=== PATIENT | male | born 1965 ===

== ENCOUNTER 2017-11-26 23:00 | Emergency (ER) | payer OTHER, SELFPAY ==
[2017-11-26 23:09] VITALS: BP 171/97; PULSE 103; RESP 18; TEMP 37.5; O2SAT 100; BMI 30.1
--- NOTE | 2017-11-26 23:24 | ED_ITS ---
HPI - URI/Sore Throat General Chief Complaint: Upper Respiratory Symptoms Stated Complaint: LEFT FACE PAIN EAR INFECTION AND SORE THROAT Time Seen by Provider: 11/26/17 23:05 Source: patient Mode of arrival: ambulatory Limitations: no limitations History of Present Illness HPI Narrative: Patient is a 52-year-old male who presents with left-sided facial pain as and throat pain. It has been ongoing for the last 2-3 days. He says it hurts very much when he swallows also his ear hurts. He denies any dental or tooth pain. He is able to swallow but it is painful. He does have a productive cough but he has a cough daily it is not any worse. He denies chest pain is no shortness of breath heart palpitations. He did take Tylenol 6-8 hours ago for pain. MD Complaint: sore throat and sinus pain Duration: constant Related Data Home Medications Medication Instructions Recorded Confirmed ACETAMINOPHEN 650 mg PO Q6HP #0 09/11/11 Allergies Allergy/AdvReac Type Severity Reaction Status Date / Time Penicillins Allergy Mild MOUTH GET Verified 11/26/17 23:15 HEAVY hydrocodone Allergy Unknown Verified 11/26/17 23:15 Review of Systems Review of Systems All systems reviewed & are unremarkable except as noted in HPI and below Constitutional Denies chills, Denies fever(s), Denies lethargy and Denies weakness Eyes Denies change in vision, Denies eye discharge, Denies irritation and Denies loss of vision ENT Ears, Nose, Mouth, and Throat: Reports as per HPI Cardiovascular Denies chest pain, Denies irregular heart rhythm, Denies lightheadedness, Denies palpitations, Denies dyspnea, Denies dyspnea on exertion and Denies orthopnea Respiratory Denies cough, Denies dyspnea, Denies dyspnea on exertion and Denies wheezing Gastrointestinal Gastrointestinal: Denies abdominal pain, Denies change in bowel habits, Denies diarrhea, Denies nausea and Denies vomiting Musculoskeletal Denies back pain, Denies muscle weakness, Denies numbness and Denies tingling Integumentary/Breasts Reports other (History of rosacea on doxycycline daily) Neurologic Denies loss of vision, Denies numbness, Denies tingling and Denies weakness Endocrine Denies palpitations Allergic/Immunologic Denies wheezing [facility] Medical History Rosacea (Acute) Ulcerative colitis (Acute) Surgical History H/O colectomy (Acute) Social History Smoking Status: Never smoker alcohol intake: never substance use type: does not use Comment: PCP: Dr. Forman Exam Initial Vital Signs Initial Vital Signs: Vital Signs Temperature 99.5 F 11/26/17 23:09 Pulse Rate 103 H 11/26/17 23:09 Respiratory Rate 18 11/26/17 23:09 Blood Pressure 171/97 H 11/26/17 23:09 Pulse Oximetry 100 11/26/17 23:09 GENERAL: Well-appearing, well-nourished and in no acute distress. HEENT: Head atraumatic,EOMI, pupils reactive, face symmetric, neck is supple no meningeal signs EARS: Tympanic membranes visualized, no erythema or bulging, no hemotympanum PHARYNX: Mild erythema some swelling noted on right no exudate no uvula deviation airway patent CARDIOVASCULAR: Regular rate and rhythm without murmurs, rubs or gallops. RESPIRATORY: Breath sounds equal bilaterally, no wheezes rales or rhonchi. ABDOMEN: Soft, nontender. Normoactive bowel sounds all 4 quadrants. No guarding or rebound. EXTREMITIES: Normal range of motion, no clubbing or edema. Neurovascularly intact NEUROLOGICAL: Alert and oriented x4.Normal gait and speech. Cranial nerves II through XII grossly intact. SKIN: Warm, dry, no laceration, no petechiae, no rashes or lesions. Course Vital Signs - 8 hr 11/26/17 23:09 11/26/17 23:25 11/26/17 23:39 Temperature 99.5 F Pulse Rate 103 H 93 H Respiratory Rate 18 18 Blood Pressure 171/97 H 154/97 H Blood Pressure [Left Arm] 159/97 H Pulse Oximetry 100 99 MDM - URI/Sore Throat Lab Data Point of Care Testing Rapid Strep A Negative Discharge Plan Departure Patient Disposition: Home Clinical Impression: URI (upper respiratory infection) Discharge Date/Time: 11/26/17 23:41 Interventions: ED Discharge Assessment Last Done: 11/26/17 23:39 Instructions: DI for Viral Upper Respiratory Infection -- Adult Activity Restrictions/Additional Instructions: *You have been diagnosed with upper respiratory infection *What to do: At this time no indication for antibiotics strep test is negative *Continue to take medications as directed *Follow up with your primary care provider in 2-3 days *Return to ER if you should have worsening throat pain, inability to swallow, stiff neck [or] any new, worsening or concerning symptoms Prescriptions: No Action ACETAMINOPHEN 650 mg PO Q6HP Qty: 0 RF: 0 Referrals: Chico Rosenberg MD [Primary Care Provider] - Sunny Forman MD [Non-Staff] -
[2017-11-26 23:25] VITALS: BP 159/97
[2017-11-26 23:39] VITALS: BP 154/97; PULSE 93; RESP 18; O2SAT 99
== END 2017-11-26 23:41 | disposition home or self-care (01) ==
PROVIDERS: Emergency Provider Emergency Medicine; Family Provider Family Medicine; PCP Family Medicine
DX: J06.9 Acute upper respiratory infection, unspecified (principal)
CPT/HCPCS: 87880; 99282; 99283

== ENCOUNTER 2018-05-13 13:32 | Emergency (ER) | payer BC, SELFPAY ==
[2018-05-13 13:40] VITALS: BP 161/102; PULSE 84; RESP 18; TEMP 37.4; O2SAT 98; BMI 30.1
--- NOTE | 2018-05-13 14:06 | ED.EYEPROB ---
HPI - Eye Problem General Chief complaint: Eye Problems Stated complaint: LF EYE SWELLED SHUT Time Seen by Provider: 05/13/18 13:56 Source: patient Mode of arrival: ambulatory Limitations: no limitations History of Present Illness HPI Narrative: The patient is a 53-year-old male who noticed a lesion on his forehead 2 or 3 days ago. Last night his eye started swelling today he is unable to open a has more lesions noted on the left side of his face. Denies any eye pain or discharge. chief complaint: eye pain and eye redness Related Data Home Medications Medication Instructions Recorded Confirmed ACETAMINOPHEN 650 mg PO Q6HP #0 09/11/11 05/13/18 cyclobenzaprine 10 mg PO TID PRN 05/13/18 05/13/18 doxycycline hyclate 100 mg PO DAILY 05/13/18 05/13/18 naproxen 500 mg PO BID 05/13/18 05/13/18 Previous Rx's Medication Instructions Recorded hydrocodone-acetaminophen [[place]] 1 tab PO Q4-6H PRN #14 tab 05/13/18 prednisone 50 mg PO DAILY #5 tab 05/13/18 valacyclovir 1,000 mg PO Q12H #30 tab 05/13/18 Allergies Allergy/AdvReac Type Severity Reaction Status Date / Time Penicillins Allergy Mild MOUTH GET Verified 11/26/17 23:15 HEAVY hydrocodone Allergy Unknown Verified 11/26/17 23:15 Review of Systems Review of Systems ROS Unobtainable: All systems reviewed & are unremarkable except as noted in HPI and below Constitutional Denies frequent falls Eyes Reports as per HPI ENT Ears, Nose, Mouth, and Throat: Denies change in voice, Denies dizziness, Denies neck pain and Denies sore throat Cardiovascular Denies chest pain, Denies irregular heart rhythm, Denies lightheadedness, Denies palpitations and Denies orthopnea Gastrointestinal Gastrointestinal: Denies abdominal pain, Denies change in bowel habits, Denies diarrhea, Denies nausea and Denies vomiting Musculoskeletal Denies neck pain and Denies numbness Integumentary/Breasts Reports as per HPI Neurologic Denies behavioral changes, Denies confusion, Denies dizziness, Denies frequent falls and Denies numbness Psychiatric Denies behavioral changes and Denies confusion Endocrine Denies palpitations [facility] Medical History Rosacea (Acute) Ulcerative colitis (Acute) Surgical History H/O colectomy (Acute) Social History (Updated 11/26/17 @ 23:22 by Paula Austin DO) Smoking Status: Never smoker alcohol intake: never substance use type: does not use Social History Smoking Status: Never smoker alcohol intake: never substance use type: does not use Exam Initial Vital Signs Initial Vital Signs: Vital Signs Temperature 99.4 F 05/13/18 13:40 Pulse Rate 84 05/13/18 13:40 Respiratory Rate 18 05/13/18 13:40 Blood Pressure 161/102 H 05/13/18 13:40 Pulse Oximetry 98 05/13/18 13:40 GENERAL: Well-appearing, well-nourished and in no acute distress. EYE: Significant swelling of left upper eyelid, lesion is noted in the left upper eyelid. Not as much swelling in the lower lid. CARDIOVASCULAR: peripheral pulses in tact, cap refill <2 sec RESPIRATORY: No respiratory distress, speaks in full sentences without difficulty EXTREMITIES: Normal range of motion, no clubbing or edema. Neurovascularly intact NEUROLOGICAL: Cranial nerves II through XII grossly intact. Normal gait and speech. SKIN: Erythematous on left side with left scalp and forehead lesions that are crusted over.. Eyes Eyelids: eyelid abnormality left upper eyelid erythema, swelling and tenderness Cornea: fluorescein used (Difficult to look due to amount of swelling in the upper eyelid.) Course Orders Ordered: Discontinued Medications Proparacaine HCl (Parcaine 0.5% Ophth Latricia) 1 drops EYE-LEFT NOW ONE Stop: 05/13/18 15:00 Last Admin: 05/13/18 15:00 Dose: 2 drop Consultations Consultation #1: Dr. Lerner, ophthalmology recommends oral antivirals and follow up with Ophthalmology next week. At this time no drops are to be given. He is aware that an eye exam is difficult due to the amount of swelling around eye. Time: 14:54 Vital Signs - 8 hr 05/13/18 13:40 05/13/18 15:12 Temperature 99.4 F 99.4 F Pulse Rate 84 102 H Respiratory Rate 18 18 Blood Pressure 161/102 H 166/100 H Pulse Oximetry 98 98 MDM - Eye Problem MDM Narrative Medical decision making narrative: Patient states that he does have an eye doctor unclear if it is an regional property manager or manager account management. But he does see 1 on a yearly basis. Dr. Lerner has graciously offered to see patient in the clinic next week or he can see his own manager account management. I have stressed to the patient it is imperative that he be seen by an manager account management to be sure that this is followed up closely and intervention can happen as needed. At this time no drops indicated. 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 It is imperative you be seen by an manager account management *Continue to take medications as directed Valacyclovir 1000 mg every 12 hours for 2 weeks Prednisone 50 mg for 5 days [place] 1-2 tablets every 6 hours if needed for severe pain *Follow up with Ophthalmology Tuesday. You will need to call them 1st thing Tuesday morning you have been seen and evaluated in the ED and I spoke with Dr. Lerner *Return to ER if you should have fever, increasing redness or any new, worsening or concerning symptoms Prescriptions: New valacyclovir 1 gram tablet 1,000 mg PO Q12H Qty: 30 RF: 0 hydrocodone-acetaminophen [[place]] 5-325 mg tablet 1 tab PO Q4-6H PRN (Reason: pain) Qty: 14 RF: 0 prednisone 50 mg tablet 50 mg PO DAILY Qty: 5 RF: 0 No Action ACETAMINOPHEN tablet 650 mg PO Q6HP Qty: 0 RF: 0 cyclobenzaprine 10 mg Tablet 10 mg PO TID PRN (Reason: Muscle Spasm) RF: 0 doxycycline hyclate 100 mg Tablet 100 mg PO DAILY RF: 0 naproxen 500 mg Tablet 500 mg PO BID RF: 0 Referrals: Jose Lerner MD [Physician] - Chico Rosenberg MD [Primary Care Provider] -
--- NOTE | 2018-05-13 14:24 | PC.NURSE ---
pt is unable to open his left eye. Assisted Dr. Austin with eye exam, pt's eyelid is swollen shut. difficulty opening with my assistance. pt reports that he woke up with a headache and swollen eye. unable to obtain visual acuity. pt has 2 small lesions on eyelid. forehead is red.
--- NOTE | 2018-05-13 14:58 | ED_ITS ---
HPI - Eye Problem General Chief complaint: Eye Problems Stated complaint: LF EYE SWELLED SHUT Time Seen by Provider: 05/13/18 13:56 Source: patient Mode of arrival: ambulatory Limitations: no limitations History of Present Illness HPI Narrative: The patient is a 53-year-old male who noticed a lesion on his forehead 2 or 3 days ago. Last night his eye started swelling today he is unable to open a has more lesions noted on the left side of his face. Denies any eye pain or discharge. chief complaint: eye pain and eye redness Related Data Home Medications Medication Instructions Recorded Confirmed ACETAMINOPHEN 650 mg PO Q6HP #0 09/11/11 05/13/18 cyclobenzaprine 10 mg PO TID PRN 05/13/18 05/13/18 doxycycline hyclate 100 mg PO DAILY 05/13/18 05/13/18 naproxen 500 mg PO BID 05/13/18 05/13/18 Previous Rx's Medication Instructions Recorded hydrocodone-acetaminophen [[place]] 1 tab PO Q4-6H PRN #14 tab 05/13/18 prednisone 50 mg PO DAILY #5 tab 05/13/18 valacyclovir 1,000 mg PO Q12H #30 tab 05/13/18 Allergies Allergy/AdvReac Type Severity Reaction Status Date / Time Penicillins Allergy Mild MOUTH GET Verified 11/26/17 23:15 HEAVY hydrocodone Allergy Unknown Verified 11/26/17 23:15 Review of Systems Review of Systems ROS Unobtainable: All systems reviewed & are unremarkable except as noted in HPI and below Constitutional Denies frequent falls Eyes Reports as per HPI ENT Ears, Nose, Mouth, and Throat: Denies change in voice, Denies dizziness, Denies neck pain and Denies sore throat Cardiovascular Denies chest pain, Denies irregular heart rhythm, Denies lightheadedness, Denies palpitations and Denies orthopnea Gastrointestinal Gastrointestinal: Denies abdominal pain, Denies change in bowel habits, Denies diarrhea, Denies nausea and Denies vomiting Musculoskeletal Denies neck pain and Denies numbness Integumentary/Breasts Reports as per HPI Neurologic Denies behavioral changes, Denies confusion, Denies dizziness, Denies frequent falls and Denies numbness Psychiatric Denies behavioral changes and Denies confusion Endocrine Denies palpitations [facility] Medical History Rosacea (Acute) Ulcerative colitis (Acute) Surgical History H/O colectomy (Acute) Social History (Updated 11/26/17 @ 23:22 by Paula Austin DO) Smoking Status: Never smoker alcohol intake: never substance use type: does not use Social History Smoking Status: Never smoker alcohol intake: never substance use type: does not use Exam Initial Vital Signs Initial Vital Signs: Vital Signs Temperature 99.4 F 05/13/18 13:40 Pulse Rate 84 05/13/18 13:40 Respiratory Rate 18 05/13/18 13:40 Blood Pressure 161/102 H 05/13/18 13:40 Pulse Oximetry 98 05/13/18 13:40 GENERAL: Well-appearing, well-nourished and in no acute distress. EYE: Significant swelling of left upper eyelid, lesion is noted in the left upper eyelid. Not as much swelling in the lower lid. CARDIOVASCULAR: peripheral pulses in tact, cap refill <2 sec RESPIRATORY: No respiratory distress, speaks in full sentences without difficulty EXTREMITIES: Normal range of motion, no clubbing or edema. Neurovascularly intact NEUROLOGICAL: Cranial nerves II through XII grossly intact. Normal gait and speech. SKIN: Erythematous on left side with left scalp and forehead lesions that are crusted over.. Eyes Eyelids: eyelid abnormality left upper eyelid erythema, swelling and tenderness Cornea: fluorescein used (Difficult to look due to amount of swelling in the upper eyelid.) Course Orders Ordered: Discontinued Medications Proparacaine HCl (Parcaine 0.5% Ophth Latricia) 1 drops EYE-LEFT NOW ONE Stop: 05/13/18 15:00 Last Admin: 05/13/18 15:00 Dose: 2 drop Consultations Consultation #1: Dr. Lerner, ophthalmology recommends oral antivirals and follow up with Ophthalmology next week. At this time no drops are to be given. He is aware that an eye exam is difficult due to the amount of swelling around eye. Time: 14:54 Vital Signs - 8 hr 05/13/18 13:40 05/13/18 15:12 Temperature 99.4 F 99.4 F Pulse Rate 84 102 H Respiratory Rate 18 18 Blood Pressure 161/102 H 166/100 H Pulse Oximetry 98 98 MDM - Eye Problem MDM Narrative Medical decision making narrative: Patient states that he does have an eye doctor unclear if it is an plant operations vice president or cash register mechanic. But he does see 1 on a yearly basis. Dr. Lerner has graciously offered to see patient in the clinic next week or he can see his own cash register mechanic. I have stressed to the patient it is imperative that he be seen by an cash register mechanic to be sure that this is followed up closely and intervention can happen as needed. At this time no drops indicated. 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 It is imperative you be seen by an cash register mechanic *Continue to take medications as directed Valacyclovir 1000 mg every 12 hours for 2 weeks Prednisone 50 mg for 5 days [place] 1-2 tablets every 6 hours if needed for severe pain *Follow up with Ophthalmology Tuesday. You will need to call them 1st thing Tuesday morning you have been seen and evaluated in the ED and I spoke with Dr. Lerner *Return to ER if you should have fever, increasing redness or any new, worsening or concerning symptoms Prescriptions: New valacyclovir 1 gram tablet 1,000 mg PO Q12H Qty: 30 RF: 0 hydrocodone-acetaminophen [[place]] 5-325 mg tablet 1 tab PO Q4-6H PRN (Reason: pain) Qty: 14 RF: 0 prednisone 50 mg tablet 50 mg PO DAILY Qty: 5 RF: 0 No Action ACETAMINOPHEN tablet 650 mg PO Q6HP Qty: 0 RF: 0 cyclobenzaprine 10 mg Tablet 10 mg PO TID PRN (Reason: Muscle Spasm) RF: 0 doxycycline hyclate 100 mg Tablet 100 mg PO DAILY RF: 0 naproxen 500 mg Tablet 500 mg PO BID RF: 0 Referrals: Jose Lerner MD [Physician] - Chico Rosenberg MD [Primary Care Provider] -
[2018-05-13] MEDS: PROPARACAINE 0.5% OPHTH SOL 1 DROPS EYE-LEFT (15:00)
[2018-05-13 15:12] VITALS: BP 166/100; PULSE 102; RESP 18; TEMP 37.4; O2SAT 98
== END 2018-05-13 15:12 | disposition home or self-care (01) ==
PROVIDERS: Emergency Provider Emergency Medicine; PCP Family Medicine
DX: B02.30 Zoster ocular disease, unspecified (principal)
CPT/HCPCS: 99282; 99283

== ENCOUNTER 2021-07-23 20:56 | Inpatient (IN) | payer BC, SELFPAY ==
[2021-07-23 22:30] VITALS: BP 177/110; PULSE 77; RESP 18; TEMP 36.3; O2SAT 97
[2021-07-23 22:42] VITALS: O2SAT 97
[2021-07-23 22:44] VITALS: BMI 29.2
--- NOTE | 2021-07-23 22:50 | P.HP_ITS ---
History of Present Illness History of Present Illness Date Patient Seen: 07/23/21 Time Patient Seen: 22:50 Chief complaint: small bowel obstruction Narrative: Rayo Ludwig is a 56 y.o. 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 He was found to have small-bowel obstruction. He does not take any chronic prescription medications currently, and is in between PCPs. Patient is afebrile, blood pressure 177/110, heart rate 77, respiratory rate 18, oxygen saturation 97% on room air he weighs 95 kg. WBC is mildly elevated at 12.3 RBC 5.14 hemoglobin 15.9 hematocrit 47.6 platelet count 329 sodium 136 potassium 4.0 chloride 104, bicarb 26 anion gap of 6 BUN 13 creatinine 0.8 glucose 131 calcium 9.1 total bilirubin 1.1 AST 17 ALT 20 alk-phos 65 total protein 18.1 albumin is 4.2 globulin 3.9 lipase 25, UA is negative for UTI, COVID-19 PCR is negative. Patient History Medical History GERD (gastroesophageal reflux disease) Rosacea Ulcerative colitis Surgical History History of colostomy reversal History of total colectomy Family & Social History Family History Mother Diabetes mellitus Father Hypertension Sister Alive and well Tobacco & Substance use: Smoking Status Never smoker alcohol intake never Meds Home Medications and Allergies Home Medications Medication Instructions Recorded Confirmed Type ACETAMINOPHEN 650 mg PO Q6HP ##0 09/11/11 05/13/18 History cyclobenzaprine 10 mg tablet 10 mg PO TID PRN Muscle Spasm 05/13/18 05/13/18 H istory doxycycline hyclate 100 mg tablet 100 mg PO DAILY 05/13/18 05/13/18 History hydrocodone 5 mg-acetaminophen 325 1 tab PO Q4-6H PRN pain #14 tabs 05/13/18 Rx mg tablet ([place]) naproxen 500 mg tablet 500 mg PO BID 05/13/18 05/13/18 History prednisone 50 mg tablet 50 mg PO DAILY #5 tabs 05/13/18 Rx valacyclovir 1 gram tablet 1,000 mg PO Q12H #30 tabs 05/13/18 Rx Allergies Allergy/AdvReac Type Severity Reaction Status Date / Time Penicillins Allergy Mild MOUTH GET Verified 11/26/17 23:15 HEAVY hydrocodone Allergy Unknown Verified 11/26/17 23:15 Review of Systems Review of Systems ROS: Yes All systems reviewed with the patient and are negative except as otherwise documented Exam Narrative Exam Narrative: Gen: Alert, oriented, well-developed 56 y.o. Eurasian male, appears uncomfortable HEENT: normocephalic, atraumatic, conjunctiva clear, sclera non-icteric, oral mucosa pink and moist, has an NG tube Neck: supple, full ROM, no JVD, trachea is midline Resp: Lungs CTA, non-labored breathing CV: RRR, no murmur or rubs Abd: soft, diffusely tender, hypoactive BTs Skin: no lesions or rashes, dry and intact Neuro: Alert and oriented X 4 w/no focal deficits. Speech clear and coherent. Extremities: moves all 4 extremities, is ambulatory, negative Maximilian?s sign Psyche: normal mood and affect. Assessment & Plan Assessment & Plan narrative: Rayo Fuchs is accepted in transfer from [facility] for further evaluation and management of a small-bowel obstruction. Small-bowel obstruction, acute, present on admission * Dr. Walker, general surgery has been contacted by [facility]'s ED provider and will see the patient in the morning * Patient is NPO except for ice chips, though NG tube will likely interfere with any substance * Pain control with IV morphine and fever control with Tylenol PA VTE Prophylaxis: Wells risk score 0 pharmacological DVT prophylaxis is con tradicted in the setting of likely up coming surgery, Bilateral SCDs Patient is admitted to the inpatient service due to the severity of disease, risks of further disease progression and this stay is expected to exceed 2 midnights. FEN: IV fluids: IV NS at 100 mL/hour, diet: NPO, labs: CBC, C/BMP, liver enzymes, Mag, PT/INR Consultants Dr. Lee, general surgery care and involvement in the patient?s care is appreciated. Dispo: Likely discharge back to home Code status: Full code as discussed with the patient who identifies sisterMechelle as his surrogate and POA. [X] I have utilized all available immediate resources to obtain, update, or review of the patient's current medications COVID-19 COVID-19 status: Negative Result date/Date tested (Pos, Neg/Pending): 07/23/21 Time Spent With Patient Critical Care time: I spent a total of [] minutes of critical care time on this patient's care today; this time is exclusive of procedural time. Scores Wells' Criteria for PE Clinical signs and symptoms of DVT: No PE is #1 Dx or equally likely: No Heart rate > 100: No Immobilization at least 3 days or surg in previous 4 weeks: No History of PE or DVT: No Hemoptysis: No Malignancy w/Treatment within 6 months or palliative: No Wells' PE Score total: 0 Quality VTE Deep Vein Thrombosis/Pulmonary Embolism Present on Admission: No MIPS - Admit I confirm the patient?s Advance Care Plan is present, Code status is documented, Surrogate decision maker is in patient?s record [If Yes, STOP here]: No MIPS - DC The patient has current or prior documentation of left ventricular ejection fraction (LVEF) less than 40%, or moderate or severely depressed left ventricular systolic function.: No
[2021-07-23] MEDS: SODIUM CHLORIDE 0.9% 1,000 ML 100 ML IV (23:31)
[2021-07-23] MEDS: MORPHINE 2 MG/ML INJ IV (23:31)
[2021-07-24] VITALS (10 sets, daily range): BP systolic 130–146; BP diastolic 72–86; PULSE 76–103; RESP 14–18; TEMP 35.9–37.3; O2SAT 97–99
[2021-07-24 01:57] LABS: COVID19 -Nasal RAPID Negative (Negative)
[2021-07-24 03:59] LABS: Add Manual Diff / Slide Review NO; Basophils Absolute Auto 0 /uL (0-100); Basophils Percent Auto 0.3 % (0-2); Eosinophils Absolute Auto 0 /uL (0-450); Eosinophils Percent Auto 0.2 % (2-4); Hematocrit 41.5 % (41-53); Hemoglobin 13.9 g/dL (13.5-17.5); Lymphocytes Absolute Auto 1100 /uL (1100-4500); Lymphocytes Percent Auto 10.6 % (25-40); Mean Corpuscular HGB Conc 33.5 % (30-36); Mean Corpuscular Hemoglobin 30.6 PG (26-34); Mean Corpuscular Volume 91.3 fL (80-100); Monocytes Absolute Auto 700 /uL (0-900); Monocytes Percent Auto 6.9 % (3-14); Neutrophils Absolute Auto 8600 /uL (1500-7000); Platelet Count 282 X10^3/uL (150-400); Red Blood Cell Count 4.55 X10^6/uL (4.5-5.9); Red Cell Distribution Width 13.8 % (11.6-14.8); White Blood Cell Count 10.5 X10^3/uL (4.5-11.0)
[2021-07-24 04:10] LABS: BUN Creatinine Ratio 12.8 (6-22); Blood Urea Nitrogen 10 mg/dL (9-20); Calcium 7.6 mg/dL (8.4-10.2); Carbon Dioxide 25 mmol/L (22-32); Chloride 108 mmol/L (98-107); Estimated Glomerular Filt Rate > 60 mL/min (>60); Glucose 109 mg/dL (70-100); HEMOLYSIS < 15 (0-50); Magnesium 2.3 mg/dL (1.6-2.3); Sodium 139 mmol/L (137-145)
--- NOTE | 2021-07-24 05:08 | PC.NURSE ---
Shift Note: Patient brought in from [facility] by EMS on stretcher, alert and orientedx4, verbalized slight nausea and tolerable upper abdominal pain. NGT tube at right nare noted, placed to low cont suction. IV access at right AC, saline locked. Vital signs are stable, BP 177/110, patient was seen and examined by GIDEON Rivera, also notified her on current patient BP. Patient able to turn and get up from bed with standby assist to use the toilet. No signs of any distress. Safety precautions emphasized and maintained. Call bojorquez within reach. Maintained on NPO, patient verbalized understanding.
[2021-07-24] MEDS: SODIUM CHLORIDE 0.9% 1,000 ML 100 ML IV (11:00)
--- NOTE | 2021-07-24 14:31 | CM.DANOTE ---
Initial DCP Assessment Note Pt is a 56 yo male, resident of [place], direct admit from [facility] for further management of a SBO, surgical consult pending PCP: Dr. Wilcox Payer: out of State [place] Reviewed chart, pt awaiting conversation w/surgeon according to RN. Patient sleeping soundly, did not feel it was necessary to wake patient. Will plan to assess needs post operatively if patient is a surgical candidate. Plan: Expect that patient will be able to return home once medically cleared. CM team will plan to followclosely in case any DC needs or concerns arise GLORIA Santos Discharge Planning/Care Management CM Discharge Assessment Start: 07/24/21 14:25 Freq: Status: Active Protocol: Document 07/24/21 14:25 AMOR (Rec: 07/24/21 14:30 AMOR [id number]) Discharge Planning Assessment Assigned Administrator P[employer] GLORIA Valdivia DPOA/Assigned Designee Name sister Tejada Contact Information [phone] Advance Directives? Yes Advance Directives on File No History Provided By Medical Record Prior Living Arrangements House Type of transporation used prior to Drives own vehicle admit Independent with ADL's Yes Is patient alert and oriented? Yes Barriers to Discharge No Comment Likely home once medically cleared. Patient is indp and active at baseline. Discharge Plan Home Transportation Arrangement Friend/family Referrals Initiated None needed Additional Comment At this time
--- NOTE | 2021-07-24 15:29 | PM.PN.1 ---
Subjective Subjective Date Patient Seen: 07/24/21 Time Patient Seen: 15:30 Interval history: 56-year-old male admitted to the hospital for small-bowel obstruction. Patient's history is significant for ulcerative colitis, history of Williams pouch procedure in 2012, reversal in March 2013. He presented to [facility] for with complaints of abdominal pain. CT of the abdomen and pelvis was obtained. The CT finding showed suggestion of a small bowel obstruction with a transition point in the posterior upper pelvis. There was a colonic resection with residual me mesial rectal lymph nodes seen. Mildly prominent left common femoral lymph node noted, there was cholelithiasis, and coronary artery classification. As [facility] had no surgeons and house last evening or any on-call this week he was transferred here to [facility] for definitive surgical consultation and treatment. The patient reports no further abdominal pain, no nausea, no vomiting. He had several bowel movements over the last evening. Exam Vital Signs (past 8 hours): - 07/24/21 07:40 07/24/21 10:00 07/24/21 10:00 Temperature 99.2 F Pulse Rate 103 H Respiratory Rate 16 Blood Pressure 146/84 H Pulse Oximetry 97 98 Oxygen Delivery Method Room Air Room Air 07/24/21 12:00 Temperature 98.7 F Pulse Rate 81 Respiratory Rate 16 Blood Pressure 136/86 Pulse Oximetry 98 Oxygen Delivery Method Oxygen Delivery Method Room Air Oxygen Flow Rate 0 Narrative Exam Narrative: Pleasant sitting in bed in no obvious distress Resp Other: Lungs clear to auscultation Cardio Other: Cardiac exam: Regular rate and rhythm normal S1-S2 GI Other: Abdomen: Soft nontender nondistended, hypoactive bowel tones, no rebound tenderness, no board-like rigidity, no palpable masses Extrem Other: No edema Objective Labs Result Diagrams: 07/24/21 03:45 07/24/21 03:45 Labs: Laboratory Results - last 24 hr 07/23/21 07/24/21 07/24/21 23:22 03:45 03:45 WBC 10.5 RBC 4.55 Hgb 13.9 Hct 41.5 MCV 91.3 MCH 30.6 MCHC 33.5 RDW 13.8 Plt Count 282 Neut % (Auto) 82.0 H Lymph % (Auto) 10.6 L [place] % (Auto) 6.9 Eos % (Auto) 0.2 L Baso % (Auto) 0.3 Neut # (Auto) 8600 H Lymph # (Auto) 1100 [place] # (Auto) 700 Eos # (Auto) 0 Baso # (Auto) 0 Sodium 139 Potassium 4.0 Chloride 108 H Carbon Dioxide 25 BUN 10 Creatinine 0.78 Estimated GFR > 60 BUN/Creatinine Ratio 12.8 Glucose 109 H Calcium 7.6 L Magnesium 2.3 SARS-CoV-2 (PCR) Negative Blood Type Antibody Screen 07/24/21 03:45 WBC RBC Hgb Hct MCV MCH MCHC RDW Plt Count Neut % (Auto) Lymph % (Auto) Bent % (Auto) Eos % (Auto) Baso % (Auto) Neut # (Auto) Lymph # (Auto) Bent # (Auto) Eos # (Auto) Baso # (Auto) Sodium Potassium Chloride Carbon Dioxide BUN Creatinine Estimated GFR BUN/Creatinine Ratio Glucose Calcium Magnesium SARS-CoV-2 (PCR) Blood Type O Positive Antibody Screen Negative [facility] Medical History GERD (gastroesophageal reflux disease) Rosacea Ulcerative colitis Surgical History History of colostomy reversal History of total colectomy Family History Mother Diabetes mellitus Father Hypertension Sister Alive and well Social History Smoking Status: Never smoker alcohol intake: never substance use type: does not use Assessment & Plan Assessment & Plan narrative: 1. Small-bowel obstruction -CT scan of the abdomen and pelvis from would be revealed a transition point in the upper pelvis -patient has no further abdominal pain, and has positive BM, doubt he is currently obstructive -await surgical consultation, will defer small-bowel follow-through study to him if needed -will keep patient NPO, continue IV hydration, hopefully we can advance diet as tolerated starting tomorrow Time Spent With Patient Critical Care time: I spent a total of [] minutes of critical care time on this patient's care today; this time is exclusive of procedural time. Quality VTE Deep Vein Thrombosis/Pulmonary Embolism Present on Admission: No
--- NOTE | 2021-07-24 18:17 | PC.NURSE ---
Pt is AxOx4, independent and cooperative. Pt has NG tube all day and it suddenly pulled off. MD is notified and pt has no n/v so MD says it is ok to have no NG tube. VSS, pt denies pain, n/v. Pt already had 2 loose stools today so MD changed his diet order to from NPO to clear liquid diet. Pt is tolerating well. If pt is doing well, pt can have regular meal later. Continued NS is stopped once pt is eating and drinking well. No other changes. Continue monitor.
--- NOTE | 2021-07-24 18:28 | PM.CN ---
History of Present Illness Consult details Date Patient Seen: 07/24/21 Time Patient Seen: 18:29 Chief complaint: small bowel obstruction Narrative: The patient was transferred from [facility]. He went there because of abdominal pain and a CT suggested small-bowel obstruction. Since arriving here he has had multiple bowel movements and has passed gas. He has not had nausea and vomiting. 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 Presumably he has a J-pouch but he does not know for sure. He states that he has had prior bowel obstructions with resolution with conservative measures. Meds Home Medications and Allergies Home Medications Medication Instructions Recorded Confirmed Type ACETAMINOPHEN 650 mg PO Q6HP ##0 09/11/11 05/13/18 History cyclobenzaprine 10 mg tablet 10 mg PO TID PRN Muscle Spasm 05/13/18 05/13/18 History doxycycline hyclate 100 mg tablet 100 mg PO DAILY 05/13/18 05/13/18 History hydrocodone 5 mg-acetaminophen 325 1 tab PO Q4-6H PRN pain #14 tabs 05/13/18 Rx mg tablet ([place]) naproxen 500 mg tablet 500 mg PO BID 05/13/18 05/13/18 History prednisone 50 mg tablet 50 mg PO DAILY #5 tabs 05/13/18 Rx valacyclovir 1 gram tablet 1,000 mg PO Q12H #30 tabs 05/13/18 Rx Allergies Allergy/AdvReac Type Severity Reaction Status Date / Time Penicillins Allergy Mild MOUTH GET Verified 11/26/17 23:15 HEAVY hydrocodone Allergy Unknown Verified 11/26/17 23:15 Exam Vital Signs (past 8 hours): - 07/24/21 12:00 07/24/21 16:00 Temperature 98.7 F Pulse Rate 81 Respiratory Rate 16 Blood Pressure 136/86 Pulse Oximetry 98 Oxygen Delivery Method Room Air Oxygen Delivery Method Room Air Oxygen Flow Rate 0 Const General: No acute distress Resp Effort & Inspection: normal respiratory effort GI Other: Soft nontender Objective Labs Result Diagrams: 07/24/21 03:45 07/24/21 03:45 Labs: Laboratory Results - last 24 hr 07/23/21 07/24/21 07/24/21 23:22 03:45 03:45 WBC 10.5 RBC 4.55 Hgb 13.9 Hct 41.5 MCV 91.3 MCH 30.6 MCHC 33.5 RDW 13.8 Plt Count 282 Neut % (Auto) 82.0 H Lymph % (Auto) 10.6 L [place] % (Auto) 6.9 Eos % (Auto) 0.2 L Baso % (Auto) 0.3 Neut # (Auto) 8600 H Lymph # (Auto) 1100 [place] # (Auto) 700 Eos # (Auto) 0 Baso # (Auto) 0 Sodium 139 Potassium 4.0 Chloride 108 H Carbon Dioxide 25 BUN 10 Creatinine 0.78 Estimated GFR > 60 BUN/Creatinine Ratio 12.8 Glucose 109 H Calcium 7.6 L Magnesium 2.3 SARS-CoV-2 (PCR) Negative Blood Type Antibody Screen 07/24/21 03:45 WBC RBC Hgb Hct MCV MCH MCHC RDW Plt Count Neut % (Auto) Lymph % (Auto) [place] % (Auto) Eos % (Auto) Baso % (Auto) Neut # (Auto) Lymph # (Auto) [place] # (Auto) Eos # (Auto) Baso # (Auto) Sodium Potassium Chloride Carbon Dioxide BUN Creatinine Estimated GFR BUN/Creatinine Ratio Glucose Calcium Magnesium SARS-CoV-2 (PCR) Blood Type O Positive Antibody Screen Negative [facility] Medical History GERD (gastroesophageal reflux disease) Rosacea Ulcerative colitis Surgical History History of colostomy reversal History of total colectomy Family History Mother Diabetes mellitus Father Hypertension Sister Alive and well Tobacco & Substance Use Smoking Status: Never smoker alcohol intake: never substance use type: does not use Assessment & Plan Assessment and plan (1) Small bowel obstruction: Status: Acute Plan No clinical signs of bowel obstruction at this time. Okay to start clear liquid diet and advance as tolerates. He can go home once he is tolerating regular diet. No need to follow-up with me. Time Spent With Patient Critical Care time: I spent a total of [] minutes of critical care time on this patient's care today; this time is exclusive of procedural time.
[2021-07-24] MEDS: SENNOSIDES 8.6 MG TABLET 17.2 MG PO (21:21)
[2021-07-25 02:36] VITALS: O2SAT 99
[2021-07-25 04:00] VITALS: O2SAT 96
[2021-07-25 06:00] VITALS: BP 152/88; PULSE 88; RESP 18; TEMP 37.3; O2SAT 100
[2021-07-25 06:09] LABS: Add Manual Diff / Slide Review NO; Basophils Absolute Auto 0 /uL (0-100); Basophils Percent Auto 0.7 % (0-2); Eosinophils Absolute Auto 300 /uL (0-450); Eosinophils Percent Auto 3.5 % (2-4); Hematocrit 40.7 % (41-53); Hemoglobin 13.6 g/dL (13.5-17.5); Lymphocytes Absolute Auto 2200 /uL (1100-4500); Lymphocytes Percent Auto 30.2 % (25-40); Mean Corpuscular HGB Conc 33.3 % (30-36); Mean Corpuscular Hemoglobin 30.6 PG (26-34); Mean Corpuscular Volume 91.8 fL (80-100); Monocytes Absolute Auto 600 /uL (0-900); Monocytes Percent Auto 8.5 % (3-14); Neutrophils Absolute Auto 4200 /uL (1500-7000); Neutrophils Percent Auto 57.1 % (50-75); Platelet Count 279 X10^3/uL (150-400); Red Blood Cell Count 4.43 X10^6/uL (4.5-5.9); Red Cell Distribution Width 13.4 % (11.6-14.8); White Blood Cell Count 7.4 X10^3/uL (4.5-11.0)
[2021-07-25 06:31] LABS: BUN Creatinine Ratio 10.3 (6-22); Blood Urea Nitrogen 9 mg/dL (9-20); Calcium 7.8 mg/dL (8.4-10.2); Carbon Dioxide 28 mmol/L (22-32); Chloride 109 mmol/L (98-107); Estimated Glomerular Filt Rate > 60 mL/min (>60); Glucose 95 mg/dL (70-100); HEMOLYSIS < 15 (0-50); Magnesium 2.2 mg/dL (1.6-2.3); Potassium 3.7 mmol/L (3.4-5.1); Sodium 139 mmol/L (137-145)
[2021-07-25 07:30] VITALS: BP 139/91; PULSE 85; RESP 16; TEMP 37.1; O2SAT 98
--- NOTE | 2021-07-25 07:52 | P.DS_ITS ---
History of Present Illness History of Present Illness Date Patient Seen: 07/25/21 Chief complaint: small bowel obstruction Narrative: Rayo Ludwig is a 56 y.o. male with a history of ulcerative colitis, history of Williams's procedure in 2012 and reversal in 2013 presented to [facility] with severe abdominal pain, constipation for 1 day, and vomiting on presentation to [facility] is a ED. He was found to have small-bowel obstruction.? He does not take any chronic prescription medications currently, and is in between PCPs. Patient is afebrile, blood pressure 177/110, heart rate 77, respiratory rate 18, oxygen saturation 97% on room air he weighs 95 kg.? WBC is mildly elevated at 12.3 RBC 5.14 hemoglobin 15.9 hematocrit 47.6 platelet count 329 sodium 136 potassium 4.0 chloride 104, bicarb 26 anion gap of 6 BUN 13 creatinine 0.8 glucose 131 calcium 9.1 total bilirubin 1.1 AST 17 ALT 20 alk-phos 65 total protein 18.1 albumin is 4.2 globulin 3.9 lipase 25, UA is negative for UTI, COVID-19 PCR is negative. Discharge Providers Provider Date of admission: 07/23/21 20:56 Discharge Date: 07/25/21 Primary care physician: Chalo Rosenberg MD Consults: 07/23/21 22:47 Consult to Physician Routine Comment: Consulting Provider: Miguel Walker Reason for consultation: SBO Has provider been notified: Yes Discharge provider: Jane Mesa MD Summary Hospital Course Discharge Diagnosis: 1. Small Bowel Obstruction 2. Ulcerative Colitis-s/p stover's pouch and take down 3. GERD 4. Rosacea Hospital Course: Patient was transferred from [facility] for treatment of a small bowel obstruction. Patient had no further vomiting, nausea, or abdominal pain. He did have several bowel movements. He was able to tolerate a clear liquid diet. His diet was advanced to a general diet which he tolerated without difficulty. Patient was deemed appropriate for discharge and was discharged home. Status at Discharge Cognitive/behavioral status at discharge: oriented Functional status at discharge: independent ambulation Overall status at discharge: patient is progressing back to baseline Exam Vital Signs (past 8 hours): - 07/25/21 04:00 07/25/21 02:36 07/25/21 06:00 Temperature 99.1 F Pulse Rate 88 Respiratory Rate 18 Blood Pressure 152/88 H Pulse Oximetry 96 99 100 Oxygen Delivery Method Room Air Room Air Oxygen Flow Rate 0 Oxygen Delivery Method Room Air Oxygen Flow Rate 0 Narrative Exam Narrative: pleasant sitting in a chair in no acute distress Resp Other: Lungs: clear to auscultation Cardio Other: CV: RRR nl SlS2 GI Other: Abd: soft/ non tender/ non distended, no rebound tenderness no boardlike rigidity Extrem Other: No edema Objective Labs Result Diagrams: 07/25/21 05:46 07/25/21 05:46 Labs: Laboratory Results - last 24 hr 07/25/21 07/25/21 05:46 05:46 WBC 7.4 RBC 4.43 L Hgb 13.6 Hct 40.7 L MCV 91.8 MCH 30.6 MCHC 33.3 RDW 13.4 Plt Count 279 Neut % (Auto) 57.1 D Lymph % (Auto) 30.2 [place] % (Auto) 8.5 Eos % (Auto) 3.5 Baso % (Auto) 0.7 Neut # (Auto) 4200 Lymph # (Auto) 2200 [place] # (Auto) 600 Eos # (Auto) 300 Baso # (Auto) 0 Sodium 139 Potassium 3.7 Chloride 109 H Carbon Dioxide 28 BUN 9 Creatinine 0.87 Estimated GFR > 60 BUN/Creatinine Ratio 10.3 Glucose 95 Calcium 7.8 L Magnesium 2.2 PFSH Medical History GERD (gastroesophageal reflux disease) Rosacea Ulcerative colitis Surgical History History of colostomy reversal History of total colectomy Family History Mother Diabetes mellitus Father Hypertension Sister Alive and well Social History Smoking Status: Never smoker alcohol intake: never substance use type: does not use Discharge Assessment & Plan Assessment and Plan Assessment: 1. Small Bowel Obstruction 2. Ulcerative Colitis with remote stover pouch and take down 3. GERD 4 Rosacea Plan of Treatment: Discharge home today F/U with new PCP 2 weeks Discharge Plan Discharge Plan Patient Disposition: Home Discharge orders & Medications Prescriptions: No Action No Known Home Medications Follow up/Referrals: Chico Rosenberg MD [Primary Care Provider] - Discharge Health Status Multidrug resistant organism: No MDRO Diet/Activity/Treatments Diet: Diet as Tolerated Skin/Wound/Dressing Care Report to your healthcare provider any signs of infection, such as:: increased pain Discharge Data Primary Care Provider: Chico Rosenberg Quality VTE Deep Vein Thrombosis/Pulmonary Embolism Present on Admission: No
[2021-07-25 10:51] VITALS: O2SAT 96
== END 2021-07-25 12:00 | disposition home or self-care (01) | DRG 390 ==
PROVIDERS: Admitting Provider Nurse Practitioner Family; PCP Family Medicine; Referring Provider Nurse Practitioner Family; Visit Provider Nurse Practitioner Family
DX: K56.609 Unspecified intestinal obstruction, unspecified as to partial versus complete obstruction (principal); Z20.822 Contact with and (suspected) exposure to COVID-19
CPT/HCPCS: 36415; 80048; 83735; 85025; 86850; 86900; 86901; 87635; 94760; 99232; C9803; J2270

== ENCOUNTER 2022-01-21 16:49 | Emergency (ER) | payer BC, SELFPAY ==
[2022-01-21 16:55] VITALS: BP 152/84; PULSE 84; RESP 16; TEMP 36.7; O2SAT 99; BMI 28.5
[2022-01-21 17:54] VITALS: BP 161/91; PULSE 80; RESP 16; O2SAT 99
--- NOTE | 2022-01-21 19:45 | ED.EYEPROB ---
HPI - Eye Problem General Chief complaint: Eye Problems Stated complaint: rt eye pink and painful, meds not working Time Seen by Provider: 01/21/22 18:05 Source: patient Mode of arrival: Ambulatory History of Present Illness HPI Narrative: 56-year-old male nonsmoker with noncontributory medical history presents for evaluation of right eye complaint for the past week or so. He denies any injury, wears no contacts and has no blurred vision. He states that he initially noticed some irritation in his right eye and went to a walk-in clinic and was started on polymyxin drops a few days ago and states that if anything his eye is worse now. 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 He denies runny nose, sneezing or cough. He is had no fever or chills. Denies chest pain, shortness of breath or cough. He denies any history of the same. Related Data Home Medications Medication Instructions Recorded Confirmed No Known Home Medications 07/24/21 07/24/21 Allergies Allergy/AdvReac Type Severity Reaction Status Date / Time Penicillins Allergy Mild MOUTH GET Verified 11/26/17 23:15 HEAVY hydrocodone Allergy Unknown Verified 11/26/17 23:15 Review of Systems Review of Systems Narrative: GENERAL: Denies chills, fatigue, malaise, fever, sweats. HEENT: see HPI RESPIRATORY: Denies dyspnea, cough, wheezing, hemoptysis, sputum. CARDIOVASCULAR: Denies chest pain, palpitations, orthopnea, edema, GASTROINTESTINAL: Denies nausea, vomiting, abdominal pain, diarrhea, constipation, melena. : Denies dysuria, frequency, incontinence, hematuria, urinary retention. MUSCULOSKELETAL: denies weakness, joint pain, or bony pain SKIN: Denies rash, skin lesions, or other NEUROLOGIC: Denies weakness, headache, numbness, change in speech, confusion, seizures, incoordination. PSYCHIATRIC: No concerning psychosocial issues. 12 point review of systems is negative except for those stated above Patient History Medical History GERD (gastroesophageal reflux disease) Rosacea Ulcerative colitis Surgical History History of colostomy reversal History of total colectomy Family History Mother Diabetes mellitus Father Hypertension Sister Alive and well Social History Smoking Status: Never smoker alcohol intake: never substance use type: does not use Smoking Status: Never smoker alcohol intake frequency: other Substance Use Type: does not use Exam Narrative Exam Narrative: GENERAL: [56] year old patient appears stated age. Well-developed patient, in mild distress. GCS 15 HEAD: Atraumatic. Normocephalic. EYES: Pupils equal round and reactive. Extraocular motions intact. No scleral icterus. R eye injected, mild medial chemosis. No exudate. Significant if not complete improvement with proparacaine. No foreign body noted, upper lid everted. No fluorescein uptake to suggest ulceration, corneal abrasion or other. No abnormal finding on funduscopic. Pressure 18 mm Hg with Gregory-Pen. Visual acuity noted in nursing note ENT: Nose without bleeding, purulent drainage. Throat without erythema, tonsillar hypertrophy or exudate. Airway patent. NECK: Trachea midline. Non tender CARDIOVASCULAR: Regular rate and rhythm without murmurs, gallops, or rubs. RESPIRATORY: Clear to auscultation. Breath sounds equal bilaterally. No wheezes, rales, or rhonchi. GASTROINTESTINAL: Abdomen soft, non-tender, nondistended. EXTREMITIES: No edema or joint tenderness. BACK: Nontender without deformity or crepitance. No flank tenderness. NEURO: AOx3. SKIN: No rash or erythema of visible areas Initial Vital Signs Initial Vital Signs: Vital Signs Temperature 98.1 F 01/21/22 16:55 Pulse Rate 84 01/21/22 16:55 Respiratory Rate 16 01/21/22 16:55 Blood Pressure 152/84 H 01/21/22 16:55 Pulse Oximetry 99 01/21/22 16:55 Oxygen Delivery Method 01/21/22 16:55 Course Orders Ordered: Discontinued Medications Fluorescein Sodium (Fluorescein 1 Mg Strip) 1 mg EYE-RIGHT NOW ONE Stop: 01/21/22 18:20 Last Admin: 01/21/22 20:11 Dose: 1 mg Documented By: NINFA Proparacaine HCl (Proparacaine 0.5% Ophth Latricia) 1 drops EYE-RIGHT NOW ONE Stop: 01/21/22 18:20 Last Admin: 01/21/22 20:11 Dose: 1 drops Documented By: NINFA Vital Signs Vital signs: Vital Signs - 8 hr 01/21/22 20:10 Pulse Rate 77 Respiratory Rate 18 Blood Pressure 154/99 H Pulse Oximetry 100 Oxygen Delivery Method Room Air MDM - Eye Problem MDM Narrative Medical decision making narrative: 56-year-old male nonsmoker without significant medical history presents with right eye redness and discomfort in the absence of injury. Multiple diagnoses considered including bacterial infection, acute angle closure glaucoma, corneal abrasion, foreign body versus other. No foreign body noted, no ulcerations or dye uptake. There is some pain, redness and watering but no fixed pupil and normal pressure, glaucoma unlikely. Patient's symptoms worsened after the drops, there is some question about potential chemical conjunctivitis from the medication itself. Patient encouraged to follow closely with local ophthalmology, given return precautions and questions answered to his apparent satisfaction Discharge Plan Departure Patient Disposition: Home Clinical Impression: Acute iritis Instructions: DI for Eye Pain Activity Restrictions/Additional Instructions: *You have been diagnosed with [right eye redness and irritation. As we discussed your visual acuity is reassuring, there is no evidence of corneal abrasion or laceration, no obvious foreign body and no evidence of glaucoma.] *What to do: *Please stop taking the Polymxyin as it seems to possibly be irritating your eye more * as we discussed I gave you a diluted proparacaine (0.05%) which you can use to help with the pain in your eye. You may place 1-2 drops in your right eye as needed for pain every 45-60 minutes *Please follow up with Dr. Garza or Dr. Baird at [facility]. Please call their office tomorrow morning and let them know you were seen in the emergency department and we would like you seen in follow-up. I will electronically transmitted a copy of today's note *Return to Emergency Department if you should have any new, worsening or concerning symptoms Prescriptions: No Action No Known Home Medications Referrals: Chico Rosenberg MD [Primary Care Provider] - Shorty Garza MD [Physician] - Stand Alone Forms: Work Release Note Visit Report Forms: Patient Portal/API
[2022-01-21 20:10] VITALS: BP 154/99; PULSE 77; RESP 18; O2SAT 100
[2022-01-21] MEDS: FLUORESCEIN 1 MG STRIP EYE-RIGHT (20:11)
[2022-01-21] MEDS: PROPARACAINE 0.5% OPHTH SOL 1 DROPS EYE-RIGHT (20:11)
== END 2022-01-21 20:10 | disposition home or self-care (01) ==
PROVIDERS: Emergency Provider Emergency Medicine; PCP Family Medicine
DX: H20.00 Unspecified acute and subacute iridocyclitis (principal)
CPT/HCPCS: 99282

== ENCOUNTER → 2022-01-22 14:50 | Outpatient (CLI) | payer BC, SELFPAY | PROVIDERS: PCP Nurse Practitioner Family; Referring Provider Ophthalmology; Visit Provider Ophthalmology | DX: H10.401 Unspecified chronic conjunctivitis, right eye (principal) | CPT/HCPCS: 87252 ==

== ENCOUNTER → 2022-01-26 07:45 | Outpatient (CLI) | payer BC, SELFPAY ==
[2022-01-27 05:36] LABS: RPR Screen Non Reactive (Non Reactive)
[2022-01-28 04:19] LABS: Angiotensin Converting Enzyme 47 U/L (14-82)
[2022-01-29 02:43] LABS: QuantiFERON Mitogen Value >10.00 IU/mL (.); QuantiFERON Nil Value 0.02 IU/mL (.); QuantiFERON TB Gold Plus Negative (Negative); QuantiFERON TB1 Ag Value 0.12 IU/mL (.); QuantiFERON TB2 Ag Value 0.07 IU/mL (.)
[2022-01-29 10:45] LABS: Lysozyme (Muramidase) 4.5 ug/mL (3.0-12.8)
[2022-02-02 22:11] LABS: HLA B27 Negative (.)
[2022-02-23 15:18] LABS: Treponema pallidum Antibodies Non Reactive
== END ==
PROVIDERS: PCP Nurse Practitioner Family; Referring Provider Ophthalmology; Visit Provider Ophthalmology
DX: H15.001 Unspecified scleritis, right eye (principal)
CPT/HCPCS: 36415; 81374; 82164; 85549; 86480; 86592; 86780

== ENCOUNTER → 2022-01-29 11:30 | Outpatient (CLI) | payer BC, SELFPAY ==
[2022-01-29 12:47] LABS: Add Manual Diff / Slide Review NO; Basophils Absolute Auto 0 /uL (0-100); Basophils Percent Auto 0.3 % (0-2); Eosinophils Absolute Auto 0 /uL (0-450); Eosinophils Percent Auto 0.2 % (2-4); Hematocrit 44.3 % (41-53); Hemoglobin 15.1 g/dL (13.5-17.5); Lymphocytes Absolute Auto 1400 /uL (1100-4500); Mean Corpuscular HGB Conc 34.1 % (30-36); Mean Corpuscular Hemoglobin 31.2 PG (26-34); Mean Corpuscular Volume 91.4 fL (80-100); Monocytes Absolute Auto 600 /uL (0-900); Monocytes Percent Auto 5.7 % (3-14); Neutrophils Absolute Auto 8700 /uL (1500-7000); Neutrophils Percent Auto 80.8 % (50-75); Platelet Count 376 X10^3/uL (150-400); Red Blood Cell Count 4.85 X10^6/uL (4.5-5.9); Red Cell Distribution Width 13.7 % (11.6-14.8); White Blood Cell Count 10.8 X10^3/uL (4.5-11.0)
[2022-01-29 15:38] LABS: Alanine Aminotransferase 22 IU/L (<50); Albumin 4.1 g/dL (3.5-5.0); Albumin Globulin Ratio 1.2 (1.0-2.8); Alkaline Phosphatase 83 U/L (38-126); Aspartate Aminotransferase 19 IU/L (17-59); BUN Creatinine Ratio 16.5 (6-22); Bilirubin Total 0.7 mg/dL (0.2-1.3); Blood Urea Nitrogen 13 mg/dL (9-20); Calcium 8.7 mg/dL (8.4-10.2); Carbon Dioxide 28 mmol/L (22-32); Chloride 102 mmol/L (98-107); Estimated Glomerular Filt Rate > 60 mL/min (>60); Globulin 3.5 g/dL (1.7-4.1); Glucose 104 mg/dL (70-100); HEMOLYSIS < 15 (0-50); Potassium 4.4 mmol/L (3.4-5.1); Sodium 137 mmol/L (137-145); Total Protein 7.6 g/dL (6.3-8.2)
[2022-02-02 13:17] LABS: ANA Screen, IFA Negative (.)
[2022-02-02 19:18] LABS: Angiotensin Converting Enzyme 37 U/L (14-82)
== END ==
PROVIDERS: PCP Nurse Practitioner Family; Referring Provider Ophthalmology; Visit Provider Ophthalmology
DX: H15.001 Unspecified scleritis, right eye (principal); H10.401 Unspecified chronic conjunctivitis, right eye
CPT/HCPCS: 36415; 80053; 82164; 85025; 86038; 86140; 87252

== ENCOUNTER 2022-08-04 22:03 | Emergency (ER) | payer BC, SELFPAY ==
[2022-08-04 22:05] VITALS: BP 139/85; PULSE 99; RESP 16; TEMP 37.7; O2SAT 100; BMI 29.2
[2022-08-04 22:56] LABS: Ictotest Urine Negative (Negative)
[2022-08-04 23:20] LABS: Add Manual Diff / Slide Review NO; Basophils Absolute Auto 0 /uL (0-100); Basophils Percent Auto 0.4 % (0-2); Eosinophils Absolute Auto 0 /uL (0-450); Eosinophils Percent Auto 0.1 % (2-4); Hematocrit 45.9 % (41-53); Hemoglobin 15.6 g/dL (13.5-17.5); Lymphocytes Absolute Auto 1100 /uL (1100-4500); Lymphocytes Percent Auto 15.7 % (25-40); Mean Corpuscular Hemoglobin 30.9 PG (26-34); Mean Corpuscular Volume 90.9 fL (80-100); Monocytes Absolute Auto 1000 /uL (0-900); Monocytes Percent Auto 14.5 % (3-14); Neutrophils Absolute Auto 4800 /uL (1500-7000); Neutrophils Percent Auto 69.3 % (50-75); Platelet Count 260 X10^3/uL (150-400); Red Blood Cell Count 5.05 X10^6/uL (4.5-5.9); Red Cell Distribution Width 13.4 % (11.6-14.8)
[2022-08-04 23:30] LABS: Alanine Aminotransferase 34 IU/L (<50); Albumin 4.2 g/dL (3.5-5.0); Alkaline Phosphatase 65 U/L (38-126); Aspartate Aminotransferase 35 IU/L (17-59); Bilirubin Total 0.5 mg/dL (0.2-1.3); Blood Urea Nitrogen 17 mg/dL (9-20); Calcium 8.4 mg/dL (8.4-10.2); Carbon Dioxide 30 mmol/L (22-32); Chloride 98 mmol/L (98-107); Estimated Glomerular Filt Rate > 60 mL/min (>60); Globulin 4.1 g/dL (1.7-4.1); Glucose 92 mg/dL (70-100); HEMOLYSIS < 15 (0-50); Lipase 60 U/L (23-300); Potassium 3.9 mmol/L (3.4-5.1); Sodium 136 mmol/L (137-145); Total Protein 8.3 g/dL (6.3-8.2)
[2022-08-04 23:56] LABS: Bacteria Urine None Seen; Culture Indicated Urine Cult Not Indicated; RBC Urine 0-1/HPF (0-5/HPF); Squamous Epithelial Cell Urine None Seen (0-5/HPF); WBC Urine 1-5/HPF (0-5/HPF)
--- NOTE | 2022-08-04 23:59 | ED_ITS ---
HPI - Back Pain/Injury General Chief Complaint: Back Pain/Injury Stated Complaint: abd pain, stiffness with up and down mvmt Time Seen by Provider: 08/04/22 22:34 Source: patient Mode of arrival: Ambulatory History of Present Illness HPI Narrative: Patient is a 57-year-old male. He states that a couple days ago he started to do some workouts where he did a plank and also did some sit-ups and pushups. The next day he started to have lower back discomfort. He states that this on both sides of his back. It is difficult for him to stand up. He does state that it is somewhat tender to palpation but it hurts more when he moves. Sherita vásquez stated complaint was that he was having abdominal pain however during my evaluation he states his pain is not in his abdomen is in his lower back. No fevers. No urinary symptoms. No change in bowel habits. Related Data Previous Rx's Medication Instructions Recorded cyclobenzaprine 10 mg tablet 10 mg PO TID PRN muscle spasm #21 08/05/22 tabs Allergies Allergy/AdvReac Type Severity Reaction Status Date / Time Penicillins Allergy Mild MOUTH GET Verified 11/26/17 23:15 HEAVY hydrocodone Allergy Unknown Verified 11/26/17 23:15 Review of Systems Constitutional Constitutional: Reports system reviewed and no additional complaints, except as documented Gastrointestinal Gastrointestinal: Reports system reviewed and no additional complaints, except as documented Musculoskeletal Musculoskeletal: Reports system reviewed and no additional complaints, except as documented Integumentary/Breasts Skin/Breast: Reports system reviewed and no additional complaints, except as documented Neurologic Neurologic: Reports system reviewed and no additional complaints, except as documented Patient History Medical History GERD (gastroesophageal reflux disease) Rosacea Ulcerative colitis Surgical History History of colostomy reversal History of total colectomy Family History Mother Diabetes mellitus Father Hypertension Sister Alive and well Social History Smoking Status: Never smoker alcohol intake: never substance use type: does not use Smoking Status: Never smoker alcohol intake frequency: other Substance Use Type: does not use Exam Initial Vital Signs Initial Vital Signs: Vital Signs Temperature 99.8 F H 08/04/22 22:05 Pulse Rate 99 H 08/04/22 22:05 Respiratory Rate 16 08/04/22 22:05 Blood Pressure 139/85 08/04/22 22:05 Pulse Oximetry 100 08/04/22 22:05 Oxygen Delivery Method Room Air 08/04/22 22:05 GI Inspection: normal to inspection and non-distended Palpation: soft, No firm, No guarding and No tender Back/Spine/Pelvis Thoracic/Lumbar Spine: No paraspinal tenderness, No thoracic spinal tenderness and lumbar spinal tenderness Sacroiliac Joints: tender to palpation bilateral Skin General: no rashes or lesions noted Neuro General: patient alert, patient awake and moves all extremities Extrem General: normal to inspection and capillary refill normal Course Orders Ordered: ED Orders 08/04/22 22:35 Ictotest Urine Stat Urine Microscopic Stat 08/04/22 23:08 Complete Blood Count AUTO DIFF Stat Comprehensive Metabolic Panel Stat Lipase Stat Discontinued Medications Cyclobenzaprine HCl (Cyclobenzaprine 10 Mg Prepack) 1 bottle MISC SEEINSTR ONE Stop: 08/05/22 00:01 Last Admin: 08/05/22 00:11 Dose: 1 bottle Documented By: FRAN Ketorolac Tromethamine (Ketorolac 30 Mg/Ml Vial) 30 mg IV NOW ONE Stop: 08/05/22 00:01 Last Admin: 08/05/22 00:11 Dose: 30 mg Documented By: FRAN Vital Signs Vital signs: Vital Signs - 8 hr 08/04/22 22:05 08/05/22 00:16 Temperature 99.8 F H Pulse Rate 99 H 84 Respiratory Rate 16 16 Blood Pressure 139/85 163/92 H Pulse Oximetry 100 97 Oxygen Delivery Method Room Air Room Air MDM - Back Pain/Injury Lab Data 08/04/22 23:08 08/04/22 23:08 Labs: Lab Results 08/04/22 08/04/22 08/04/22 Range/Units 22:35 23:08 23:08 WBC 7.0 (4.5-11.0) X10^3/uL RBC 5.05 (4.5-5.9) X10^6/uL Hgb 15.6 (13.5-17.5) g/dL Hct 45.9 (41-53) % MCV 90.9 (80-100) fL MCH 30.9 (26-34) PG MCHC 34.0 (30-36) % RDW 13.4 (11.6-14.8) % Plt Count 260 (150-400) X10^3/uL Neut % (Auto) 69.3 (50-75) % Lymph % (Auto) 15.7 L (25-40) % Williamson % (Auto) 14.5 H (3-14) % Eos % (Auto) 0.1 L (2-4) % Baso % (Auto) 0.4 (0-2) % Neut # (Auto) 4800 (8640-6995) /uL Lymph # (Auto) 1100 (6468-3404) /uL Williamson # (Auto) 1000 H (0-900) /uL Eos # (Auto) 0 (0-450) /uL Baso # (Auto) 0 (0-100) /uL Sodium 136 L (137-145) mmol/L Potassium 3.9 (3.4-5.1) mmol/L Chloride 98 (98-107) mmol/L Carbon Dioxide 30 (22-32) mmol/L BUN 17 (9-20) mg/dL Creatinine 1.13 (0.66-1.25) mg/dL Estimated GFR > 60 (>60) mL/min BUN/Creatinine Ratio 15.0 (6-22) Glucose 92 (70-100) mg/dL Calcium 8.4 (8.4-10.2) mg/dL Total Bilirubin 0.5 (0.2-1.3) mg/dL AST 35 (17-59) IU/L ALT 34 (<50) IU/L Alkaline Phosphatase 65 (38-126) U/L Total Protein 8.3 H (6.3-8.2) g/dL Albumin 4.2 (3.5-5.0) g/dL Globulin 4.1 (1.7-4.1) g/dL Albumin/Globulin Ratio 1.0 (1.0-2.8) Lipase 60 (23-300) U/L Ur Bilirubin Confirm Negative (Negative) Urine RBC 0-1/hpf (0-5/HPF) Urine WBC 1-5/hpf (0-5/HPF) Ur Squamous Epith Cells None seen (0-5/HPF) Urine Bacteria None seen (None) Ur Culture Indicated? Cult not indicated Urine Dip Bedside Urine Glucose Negative Bedside Urine Bilirubin - Negative Bedside Urine Ketone + 15 Urine Specific [place] 1.030 Bedside Urine Occult Blood ++ Bedside Urine pH 6.0 Bedside Urine Protein + 30 Bedside Urine Urobilinogen - Negative Bedside Urine Nitrite - Negative Bedside Urine Leukocytes - Negative Esterase MDM Narrative Medical decision making narrative: Patient has a benign exam here in the ER. He is no abdominal tenderness. His discomfort is located over his lower lumbar/SI joints bilaterally. This did start after he did a small workout the other day. I suspect that this is the cause of his symptoms. No indication for any radiologic studies. He reports no abdominal tenderness. No fevers. Symptomatic treatment for now. He was given return precautions. He expressed understanding and agreement. Discharge Plan Departure Patient Disposition: Home Clinical Impression: Sacro-iliac pain Instructions: DI for Low Back Pain Activity Restrictions/Additional Instructions: I do recommend that you continue to take anti-inflammatories such as Motrin or Naprosyn. Also recommend light stretching. Use the muscle relaxers as needed. Return to the emergency department for new or worsening symptoms. Prescriptions: New cyclobenzaprine 10 mg tablet 10 mg PO TID PRN (Reason: muscle spasm) Qty: 21 0RF Referrals: Cecily Phelps ARNP [Primary Care Provider] - Stand Alone Forms: Patient Portal/API, Work Release Note
[2022-08-05] MEDS: KETOROLAC 30 MG/ML VIAL IV (00:11)
[2022-08-05] MEDS: CYCLOBENZAPRINE 10 MG PREPACK 1 BOTTLE MISC (00:11)
[2022-08-05 00:16] VITALS: BP 163/92; PULSE 84; RESP 16; O2SAT 97
== END 2022-08-05 00:17 | disposition home or self-care (01) ==
PROVIDERS: Emergency Provider Emergency Medicine; PCP Nurse Practitioner Family
DX: M53.3 Sacrococcygeal disorders, not elsewhere classified (principal)
CPT/HCPCS: 36415; 80053; 81003; 81015; 83690; 85025; 96374; 99284; J1885

== ENCOUNTER 2024-12-31 15:44 | Emergency (ER) | payer BC, SELFPAY ==
[2024-09-20 16:57] VITALS: BMI 29.2
[2024-12-31 15:59] VITALS: BP 107/71; PULSE 96; RESP 17; TEMP 37.1; O2SAT 99; BMI 27.3
--- NOTE | 2024-12-31 16:06 | EKG_ITS ---
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
--- NOTE | 2024-12-31 16:07 | DI.RAD.S_ITS ---
PROCEDURE: XR ACUTE ABDOMEN SERIES INDICATIONS: abdominal pain TECHNIQUE: One view chest and two views of the abdomen were acquired. COMPARISON: None. FINDINGS: Surgical changes and devices: Anastomotic charly. Median sternotomy. Chest: Lungs are clear. Heart size is normal. No pleural effusions. No pneumoperitoneum. Abdomen: Paucity of bowel gas. No abnormally dilated loops of bowel. Anastomotic charly noted. No suspicious calcifications. Visualized solid organ contours appear normal. Bones: No suspicious bony lesions. IMPRESSION: Paucity of bowel gas. Dictated by: Evangelista Bucio M.D. on 12/31/2024 at 16:56 Approved by: Evangelista Bucio M.D. on 12/31/2024 at 16:57
--- NOTE | 2024-12-31 16:10 | ED.ABDPAIN ---
HPI - Abdominal Pain General Chief Complaint: Abdominal Pain Stated Complaint: Abd pain, and low back, diarrhea x3wks Time Seen by Provider: 12/31/24 15:55 Source: patient, RN notes reviewed and old records reviewed Mode of arrival: Ambulatory Limitations: no limitations History of Present Illness HPI narrative: 59-year-old male history of hypertension, dyslipidemia CABG in November of 2023, on Plavix, ulcerative colitis who presents with complaint of feeling like he developed a cold over the weekend with nasal congestion headache and he described epigastric pain radiating to both sides into his lower back. He states everything has not improved. Patient states he is still feels like there might be something in the epigastric area but states it is not painful. He denies a fullness or any other lumps or bumps. He states no fevers. No nausea or vomiting. He states his headaches improved. He continues to have nasal congestion. He states he has has a little bit of diarrhea but that has been going on for about a month he denies any black or bloody stools he did not has a new dysuria urgency or frequency. He denies any new swelling in his extremities. Patient states he has had a prior CABG in November of 2023, he has had prior colon resection for ulcerative colitis in 2022 and notes he was hospitalized in 2021 for a partial bowel obstruction without any intervention. He notes allergies to penicillin and hydrocodone. He denies tobacco, alcohol or recreational drugs. Follows with [facility] Related Data Home Medications ?Medication ?Instructions ?Recorded ?Confirmed albuterol sulfate 90 mcg/actuation 1 inh inhalation Q4-6H PRN 10/12/24 10/12/24 breath activated powder inhaler aspirin 81 mg tablet 81 mg PO DAILY 10/12/24 10/12/24 atorvastatin 80 mg tablet 80 mg PO DAILY 10/12/24 10/12/24 clopidogrel 75 mg tablet 75 mg PO DAILY 10/12/24 10/12/24 metoprolol tartrate 25 mg tablet 25 mg PO DAILY 10/12/24 10/12/24 pantoprazole 40 mg tablet,delayed 40 mg PO DAILY 10/12/24 10/12/24 release tiotropium bromide 2.5 2 puff inhalation DAILY 10/12/24 10/12/24 mcg/actuation mist for inhalation (Spiriva Respimat) Allergies Allergy/AdvReac Type Severity Reaction Status Date / Time Penicillins Allergy Mild MOUTH GET Verified 12/31/24 15:59 HEAVY hydrocodone Allergy Unknown Verified 12/31/24 15:59 Review of Systems Review of Systems ROS Unobtainable: All systems reviewed & are unremarkable except as noted in HPI and below Patient History Medical History Bronchitis Subacute cough GERD (gastroesophageal reflux disease) Ulcerative colitis Rosacea Surgical History History of total colectomy History of colostomy reversal Family History Mother Diabetes mellitus Father Hypertension Sister Alive and well Social History Smoking Status: Never smoker alcohol intake: never substance use type: does not use Smoking Status: Never smoker alcohol intake frequency: other Exam Narrative Exam Narrative: GENERAL: Alert and oriented x three, mild distress HEENT: Head normocephalic, atraumatic, EOMI, pupils reactive, face symmetric, moist mucous membranes NECK: Supple, full range of motion CARDIOVASCULAR: Regular rate and rhythm without murmurs, rubs or gallops. RESPIRATORY: Breath sounds equal bilaterally, no wheezes rales or rhonchi. ABDOMEN: Soft, nontender. Normoactive bowel sounds all 4 quadrants. No guarding or rebound, rigidity, no mass : No CVA tenderness BACK: No cervical, thoracic or lumbar vertebral point tenderness. Patient has normal range of motion. Patient's gait is normal. Muscle strength is 5/5 in lower extremities, DTRs are 2/4 and lower extremities. Dorsalis pedis and tibialis pulses are 2+ and lower extremities. Sensation is intact in the lower extremities. EXTREMITIES: Normal range of motion, no clubbing or edema. Neurovascularly intact NEUROLOGICAL: Cranial nerves II through XII grossly intact. Moving all extremities SKIN: Warm, dry, no petechiae, no rashes or lesions. Initial Vital Signs Initial Vital Signs: Vital Signs Temperature 98.8 F 12/31/24 15:59 Pulse Rate 96 H 12/31/24 15:59 Respiratory Rate 17 12/31/24 15:59 Blood Pressure 107/71 12/31/24 15:59 Pulse Oximetry 99 12/31/24 15:59 Oxygen Delivery Method Room Air 12/31/24 15:59 Course Orders Ordered: ED Orders 12/31/24 16:06 EKG-12 Lead Stat 12/31/24 16:07 XR acute abdomen series Stat 12/31/24 16:10 Covid-19 + FLU A/B + RSV - PCR Stat 12/31/24 16:34 Complete Blood Count AUTO DIFF Stat Comprehensive Metabolic Panel Stat Lipase Stat Trop I [Troponin I] Stat Discontinued Medications Ondansetron HCl (Ondansetron 4 Mg/2 Ml Inj) 4 mg IV NOW PRN PRN Reason: Nausea And Vomiting Ondansetron HCl (Ondansetron 4 Mg Odt) 4 mg PO NOW PRN PRN Reason: Nausea And Vomiting Vital Signs Vital signs: Vital Signs - 8 hr 12/31/24 15:59 12/31/24 17:42 Temperature 98.8 F Pulse Rate 96 H 89 Respiratory Rate 17 17 Blood Pressure 107/71 101/70 Pulse Oximetry 99 98 Oxygen Delivery Method Room Air Room Air MDM - Abdominal Pain Lab Data 12/31/24 16:34 12/31/24 16:34 Labs: Lab Results 12/31/24 12/31/24 Range/Units 16:10 16:34 WBC 5.1 (4.5-11.0) X10^3/uL RBC 4.96 (4.5-5.9) X10^6/uL Hgb 15.1 (13.5-17.5) g/dL Hct 44.9 (41-53) % MCV 90.6 (80-100) fL MCH 30.4 (26-34) PG MCHC 33.6 (30-36) % RDW 14.2 (11.6-14.8) % Plt Count 336 (150-400) X10^3/uL Neut % (Auto) 60.9 (50-75) % Lymph % (Auto) 23.1 L (25-40) % Ida % (Auto) 14.6 H (3-14) % Eos % (Auto) 0.8 L (2-4) % Baso % (Auto) 0.6 (0-2) % Neut # (Auto) 3100 (2564-8088) /uL Lymph # (Auto) 1200 (9035-3781) /uL Ida # (Auto) 700 (0-900) /uL Eos # (Auto) 0 (0-450) /uL Baso # (Auto) 0 (0-100) /uL Sodium 138 (137-145) mmol/L Potassium 3.8 (3.4-5.1) mmol/L Chloride 102 (98-107) mmol/L Carbon Dioxide 25 (22-32) mmol/L BUN 17 (9-20) mg/dL Creatinine 0.99 (0.66-1.25) mg/dL Estimated GFR > 60 (>60) mL/min BUN/Creatinine Ratio 17.2 (6-22) Glucose 98 (70-99) mg/dL Calcium 8.9 (8.4-10.2) mg/dL Total Bilirubin 0.6 (0.2-1.3) mg/dL AST 41 (17-59) IU/L ALT 38 (<50) IU/L Alkaline Phosphatase 80 (38-126) U/L Troponin I < 0.012 (0.01-0.034) ng/mL Total Protein 8.1 (6.3-8.2) g/dL Albumin 4.3 (3.5-5.0) g/dL Globulin 3.8 (1.7-4.1) g/dL Albumin/Globulin Ratio 1.1 (1.0-2.8) Lipase 84 (23-300) U/L SARS-CoV-2 (PCR) Negative (Negative) Influenza A (RT-PCR) Flu a positive H (NEGATIVE) Influenza B (RT-PCR) Flu b negative (NEGATIVE) RSV (PCR) Negative (Negative) ECG Data Attestation: I personally reviewed and interpreted this ECG as follows: MDM Narrative Medical decision making narrative: Labs, normal white count, hemoglobin and platelets, predominance of monocytes. Chemistries are appropriate BUN and creatinine normal glucose of 98 troponins less than 0.012 with a lipase 84. EKG, sinus rhythm rate of 84, IL 148 QRS 84 QTC 441, no acute ST-elevation depression. No prior for comparison. Acute abdominal series, it shows paucity of bowel gas no other acute changes. COVID/influenza/RSV is positive for influenza A 59-year-old male who started with a headache, describes some low back pain, muscle aches and myalgias as well as some abdominal discomfort throughout the weekend he states that has been improving he is also has a little bit of diarrhea and nasal congestion. He states overall his symptoms are improving but he had some persistent discomfort in the epigastric area as well as nasal congestion and presented for evaluation. Patient tested positive for influenza a, the rest of his workup shows no acute change. Patient is outside the window for Tamiflu or any sort of antiviral continue with symptomatic treatment. Discussed return precautions. Discharge Plan Departure Patient Disposition: Home Clinical Impression: Influenza A Instructions: DI for Influenza -- Adult Activity Restrictions/Additional Instructions: You have tested positive for influenza A, this is a viral illness that typically last 7-10 days. You can take Tylenol and/or ibuprofen as needed for fevers. Please return if you have new or worsening symptoms, severe pain, persistent vomiting, lightheadedness or passing out, new swelling of your extremities, new chest pain or shortness of breath or other new or concerning changes. Prescriptions: No Action atorvastatin 80 mg tablet 80 mg PO DAILY clopidogrel 75 mg tablet 75 mg PO DAILY pantoprazole 40 mg tablet,delayed release (DR/EC) 40 mg PO DAILY aspirin 81 mg tablet 81 mg PO DAILY metoprolol tartrate 25 mg tablet 25 mg PO DAILY Spiriva Respimat 2.5 mcg/actuation mist 2 puff inhalation DAILY albuterol sulfate 90 mcg/actuation aerosol powdr breath activated 1 inh inhalation Q4-6H PRN Referrals: Ne Torre PA-C [Primary Care Provider, Medical] Stand Alone Forms: Patient Portal/API, Work Release Note
[2024-12-31 16:44] LABS: Add Manual Diff / Slide Review NO; Hematocrit 44.9 % (41-53); Hemoglobin 15.1 g/dL (13.5-17.5); Lymphocytes Absolute Auto 1200 /uL (1100-4500); Mean Corpuscular HGB Conc 33.6 % (30-36); Mean Corpuscular Hemoglobin 30.4 PG (26-34); Mean Corpuscular Volume 90.6 fL (80-100); Platelet Count 336 X10^3/uL (150-400)
[2024-12-31 16:55] LABS: Alanine Aminotransferase 38 IU/L (<50); Albumin 4.3 g/dL (3.5-5.0); Albumin Globulin Ratio 1.1 (1.0-2.8); Alkaline Phosphatase 80 U/L (38-126); Blood Urea Nitrogen 17 mg/dL (9-20); Calcium 8.9 mg/dL (8.4-10.2); Carbon Dioxide 25 mmol/L (22-32); Chloride 102 mmol/L (98-107); Estimated Glomerular Filt Rate > 60 mL/min (>60); Globulin 3.8 g/dL (1.7-4.1); Glucose 98 mg/dL (70-99); HEMOLYSIS < 15 (0-50); Lipase 84 U/L (23-300); Potassium 3.8 mmol/L (3.4-5.1); Sodium 138 mmol/L (137-145); Total Protein 8.1 g/dL (6.3-8.2)
[2024-12-31 17:07] LABS: Troponin I < 0.012 ng/mL (0.01-0.034)
[2024-12-31 17:08] LABS: Influenza A - CEPHEID Flu A POSITIVE (NEGATIVE); Influenza B - CEPHEID Flu B NEGATIVE (NEGATIVE)
[2024-12-31 17:10] LABS: COVID-19 CEPHEID 4-PLEX PCR Negative (Negative)
[2024-12-31 17:42] VITALS: BP 101/70; PULSE 89; RESP 17; O2SAT 98
== END 2024-12-31 17:44 | disposition home or self-care (01) ==
PROVIDERS: Emergency Provider Emergency Medicine; PCP Physician Assistant
DX: J10.1 Influenza due to other identified influenza virus with other respiratory manifestations (principal); R10.13 Epigastric pain; I10 Essential (primary) hypertension
CPT/HCPCS: 36415; 74022; 80053; 83690; 84484; 85025; 87637; 93005; 99283; 99284